=== PATIENT | male | born 1965 | race African-American/Black ===

== ENCOUNTER 2016-07-06 01:40 | Inpatient (IN) ==
[2016-07-06 02:03] LABS: MANUAL DIFF NEEDED? NO
[2016-07-06] MEDS ORDERED: LABETALOL IV ONE (02:07)
[2016-07-06 02:30] LABS: BASO% 0.3 % (0.0-0.8); EOS# 0.08 X1000 (0.0-0.7); EOS% 1.2 % (0.0-10.0); HEMATOCRIT 44.8 % (42.0-52.0); HEMOGLOBIN 15.1 g/dL (14.0-18.0); IMM GRAN# 0.02 X1000 (0.0-0.04); IMM GRAN% 0.3 % (0.0-0.5); LYMPH# 2.98 X1000 (1.2-3.4); LYMPH% 45.8 % (20.5-51.1); MCH 30.2 PG (27-31); MCHC 33.7 g/dL (33-37); MCV 89.6 FL (81-99); MONO# 0.75 X1000 (0.11-0.59); MONO% 11.5 % (1.7-9.3); MPV 11.1 FL (7.4-10.4); NEUT% 40.9 % (42.2-75.2); PLT 181 X1000 (130-400)
[2016-07-06] MEDS ORDERED: LABETALOL ONE (02:31)
--- NOTE | 2016-07-06 02:40 | EKG Report ---
Test Performed on : 07/06/2016 01:50:21 AM Test Reason : weakness on one side Blood Pressure : / mmHG Vent. Rate : 081 BPM Atrial Rate : 081 BPM P-R Int : 178 ms QRS Dur : 082 ms QT Int : 406 ms P-R-T Axes : 039 034 017 degrees QTc Int : 471 ms Normal sinus rhythm. Voltage criteria for left ventricular hypertrophy Nonspecific T wave abnormality Abnormal ECG No previous ECGs available Unconfirmed Result
[2016-07-06 03:04] LABS: AGAP 15; ALKALINE PHOSPHATASE 61 U/L (32-122); BUN 19 mg/dL (8-22); CHLORIDE 104 mmol/L (98-107); COSMO 282; GOT 35 U/L (10-34); GPT 41 U/L (10-44); POTASSIUM 3.5 mmol/L (3.5-5.1); SODIUM 140 mmol/L (136-145); TCO2 21 mmol/L (25-35); TOTAL PROTEIN 7.4 g/dL (6.3-8.3)
[2016-07-06 03:48] LABS: PROTIME 10.7 Seconds (12.1-15.5); PTT PL 29.2 Seconds (22.6-43.9)
[2016-07-06 03:49] LABS: INR 1.02 (0.86-1.15)
[2016-07-06] MEDS ORDERED: CATAPRES PO ONE (03:49)
--- NOTE | 2016-07-06 03:56 | PROVIDER DOCUMENTATION ---
This chart was entered by Zofia Eden Scribe, acting as scribe for Robson Anguiano MD. HPI-Neurological Disorder - General Chief Complaint: Weakness Stated Complaint: STROKE SX Time Seen by Provider: 07/06/16 01:50 Source: patient Allergies/Adverse Reactions: Patient Allergies Allergy/AdvReac Type Severity Reaction Status Date / Time No Known Allergies Allergy Verified 07/06/16 02:07 - History of Present Illness-Neuro Nature of Presenting Problem: PT IS A 51YOM PRESENTING TO THE ED C/O RIGHT SIDE WEAKNESS. PT STATES WEAKNESS BEGAN ABOUT 24HOURS AGO AND ONLY IN HIS RIGHT LEG. PT STATES HIS LEG IS SO WEAK HE IS UNABLE TO STAND ON HIS OWN. PT HAS A HISTORY OF UNCONTROLLED HTN DUE TO NON-COMPLIANT WITH HIS MEDICATIONS, HE DRINKS A PINT OF WHISKEY A DAY. NO RICARDO,N/V /D, SOB OR CP NOTED AT THIS TIME Severity: reports: mild Onset/Duration: reports: 24 hours ago Timing: reports: still present Context: reports: paresthesia Character of Altered Mental Status: reports: N/A Any recent trauma/injury?: reports: none Character of Deficits: reports: new weakness New weakness or altered sensation location:: reports: RLE Cognitive Baseline: alert, oriented x3 Gait Baseline: walks without assistance Associated Symptoms: reports: decreased ability to walk or stand, numbness in legs/feet, paresthesia, trouble walking. denies: loss of consciousness, nausea , slurred speech Similar Symptoms Previously?: No Recently seen or treated by another doctor?: No Review of Systems - Adult - REVIEW OF SYSTEMS - ADULT Constitutional: reports: no symptoms reported Eyes: reports: no symptoms reported Ears, Nose, Mouth & Throat: reports: no symptoms reported Cardiovascular: reports: no symptoms reported Respiratory: reports: no symptoms reported Gastrointestinal: reports: no symptoms reported Genitourinary: reports: no symptoms reported Musculoskeletal: reports: no symptoms reported Integumentary: reports: no symptoms reported Neurological: reports: see HPI, paresthesia. denies: slurred speech, tremors Psychiatric: reports: see HPI, alcohol/drug dependence. denies: insomnia, suicidal thoughts Endocrine: reports: no symptoms reported Hematologic/Lymphatic: reports: no symptoms reported Allergic/Immunologic: reports: no symptoms reported All Other Systems: Reviewed and Negative Past History - Adult - PAST MEDICAL HISTORY-ADULT Review of Records: reports: Old Records Reviewed, Nursing Assessment Review, Medications Reviewed, Social history reviewed & non-contributory. Major Childhood Illnesses: reports: denies history Cardiovascular: reports: denies history Respiratory: reports: denies history Gastrointestinal: reports: denies history Obstetrical/Gynecological: reports: denies history Genitourinary: reports: denies history Musculoskeletal: reports: denies history Neurological: reports: denies history Endocrine/Immune: reports: denies history Other Conditions: reports: denies history - IMMUNIZATION STATUS Childhood Immunizations: See Nurse Assessment Flu Vaccine: See Nurse Assessment - FAMILY HISTORY Family History: reviewed, not pertinent - SOCIAL HISTORY Smoking: denies, non-smoker Substance Use: none/never, alcohol Alcohol Use Frequency: every day Number of drinks per typical drinking period:: 16-20 drinks Living Situation: family Physical Exam- Neurological - Physical Exam-Neuro Initial Vital Signs Reviewed: Yes General Appearance: appears well, alert, mild distress. negative: no apparent distress Eye Exam: bilateral eye: normal inspection, PERRL, EOMI HENMT: normocephalic/atraumatic, moist mucous membranes, normal ENT inspection, TMs normal, pharynx normal Head Injury: no evidence of injury Neck: non-tender, full range of motion, supple, normal inspection Respiratory: chest non-tender, lungs clear, normal breath sounds, no pleuratic chest pain, no respiratory distress, no accessory muscle use Cardiovascular: normal peripheral pulses, regular rate, rhythm, no edema, no gallop, no JVD, no murmur Abdominal Exam: normal bowel sounds, non tender, soft, no organomegaly, no pulsatile mass Lymphatic: no adenopathy Extremity: normal range of motion, non-tender, normal gait, normal inspection, no pedal edema, no calf tenderness, normal capillary refill, pelvis stable roster clerk Exam: normal hearing, normal speech, PERRL. negative: facial asymmetry, facial droop Coordination/Gait: normal finger to nose. negative: normal gait Motor/Sensory: no motor deficit, no sensory deficit, no pronator drift Neurologic: roster clerk II-XII nml as tested, grossly normal, no motor/sensory deficits Integumentary: normal color, normal turgor, warm/dry Psych/Mental Status: normal mood/affect, normal thought content, normal thought process, oriented x 3 - Glascow Coma Scale Best Eye Response: (4) open spontaneously Best Verbal Response: (5) oriented Best Motor Response: (6) obeys commands Progress - PLAN OF CARE/RESULTS Progress/Plan/Lab Results: Vital Signs - 8 hr 07/06/16 02:00 07/06/16 02:26 07/06/16 02:30 Temperature 98.2 F Pulse Rate 80 82 86 Respiratory Rate 32 H 16 24 Blood Pressure 206/127 201/136 179/123 O2 Sat by Pulse Oximetry 90 L 90 L 92 L 07/06/16 02:41 07/06/16 02:46 07/06/16 03:01 Temperature 98.5 F Pulse Rate 82 79 76 Respiratory Rate 18 17 15 Blood Pressure 200/131 179/120 186/125 O2 Sat by Pulse Oximetry 100 81 L 07/06/16 03:08 07/06/16 03:36 Temperature 98.0 F Pulse Rate 84 Respiratory Rate 18 Blood Pressure 178/115 O2 Sat by Pulse Oximetry 94 L 95 Laboratory Results - last 24 hr 07/06/16 07/06/16 07/06/16 01:57 01:57 01:57 WBC 6.51 RBC 5.00 Hgb 15.1 Hct 44.8 MCV 89.6 MCH 30.2 MCHC 33.7 RDW Std Deviation 13.2 Plt Count 181 MPV 11.1 H Immature Gran % (Auto) 0.3 Neut % (Auto) 40.9 L Lymph % (Auto) 45.8 [place] % (Auto) 11.5 H Eos % (Auto) 1.2 Baso % (Auto) 0.3 Immature Gran # (Auto) 0.02 Neut # (Auto) 2.66 Lymph # (Auto) 2.98 [place] # (Auto) 0.75 H Eos # (Auto) 0.08 Baso # (Auto) 0.02 PT INR APTT (Factor Assay) Sodium 140 Potassium 3.5 Chloride 104 Carbon Dioxide 21 L Anion Gap 15 BUN 19 Creatinine 0.8 Estimated GFR/1.73 m2 > 60 BUN/Creatinine Ratio 24 Glucose 109 H Calculated Osmolality 282 Calcium 9.0 Total Bilirubin 0.20 AST 35 H ALT 41 Alkaline Phosphatase 61 Troponin T < 0.010 Total Protein 7.4 Albumin 4.0 Globulin 3.0 Albumin/Globulin Ratio 1.0 07/06/16 01:57 WBC RBC Hgb Hct MCV MCH MCHC RDW Std Deviation Plt Count MPV Immature Gran % (Auto) Neut % (Auto) Lymph % (Auto) [place] % (Auto) Eos % (Auto) Baso % (Auto) Immature Gran # (Auto) Neut # (Auto) Lymph # (Auto) [place] # (Auto) Eos # (Auto) Baso # (Auto) PT 10.7 L INR 1.02 APTT (Factor Assay) 29.2 Sodium Potassium Chloride Carbon Dioxide Anion Gap BUN Creatinine Estimated GFR/1.73 m2 BUN/Creatinine Ratio Glucose Calculated Osmolality Calcium Total Bilirubin AST ALT Alkaline Phosphatase Troponin T Total Protein Albumin Globulin Albumin/Globulin Ratio Orders Category Date Time Status Cardiac Monitoring DIRECTED Care 07/06/16 01:51 Active Oxygen Therapy- ED Nursing DIRECTED Care 07/06/16 01:51 Active Saline Loc NOW Care 07/06/16 01:51 Active HEAD W/O CONTRAST [CT] Stat Exams 07/06/16 01:49 Taken CBC WITH ELECTRONIC DIFF [HEME] Stat Lab 07/06/16 01:57 Completed COMPREHENSIVE METABOLIC PANEL [CHEM] Stat Lab 07/06/16 01:57 Completed PROTIME WITH INR PL [COAG] Stat Lab 07/06/16 01:[address] [COAG] Stat Lab 07/06/16 01:57 Completed TROPONIN T Stat Lab 07/06/16 01:57 Completed URINE DRUG SCREEN PL Stat Lab 07/06/16 01:59 Ordered Clonidine [Catapres] Med 07/06/16 03:49 Discontinued 0.2 mg PO NOW ONE Labetalol Med 07/06/16 02:31 Discontinued 20 mg .ROUTE .STK-MED ONE Labetalol Med 07/06/16 02:07 Discontinued 20 mg IV NOW ONE EKG [EKG] Stat Ther 07/06/16 01:51 Draft Result Diagrams: 07/06/16 01:57 07/06/16 01:57 Departure - Departure Time of Disposition Decision: 03:50 DIAGNOSIS: Right leg weakness, Uncontrolled hypertension Disposition: ADMITTED INPATIENT 09 Certified Medical Emergency: Emergent Condition: Stable Referrals and Follow-Ups: None,PCP [Primary Care Provider] - - Critical Care Note This patient required my direct personal management.: Yes This chart was documented by the indicated scribe, (Zofia Eden Scribe) and accurately reflects the services I performed and decisions made by me, Robson Anguiano MD, as attested by the provider's signature.
[2016-07-06 04:24] LABS: UR AMPHETAMINES QUAL NONE DETECTED (NONE DETECT); UR BARBITUATES QUAL NONE DETECTED (NONE DETECT); UR BENZODIAZEPIN QUAL NONE DETECTED (NONE DETECT); UR CANNABINOIDS QUAL NONE DETECTED (NONE DETECT); UR COCAINE QUAL NONE DETECTED (NONE DETECT); UR MDMA QUAL NONE DETECTED (NONE DETECT); UR METHADONE QUAL NONE DETECTED (NONE DETECT); UR METHAMPHETAMINE QUAL NONE DETECTED (NONE DETECT); UR OPIATES QUAL NONE DETECTED (NONE DETECT); UR OXYCODONE QUAL NONE DETECTED (NONE DETECT); UR PCP QUAL NONE DETECTED (NONE DETECT); UR TCA QUAL NONE DETECTED (NONE DETECT)
[2016-07-06] MEDS: CATAPRES PO PRN ×2 (06:57→11:39)
--- NOTE | 2016-07-06 09:27 | Diag Imaging Result Document ---
PROCEDURE NAME: HEAD W/O CONTRAST - 07/06/2016 CT HEAD WITHOUT CONTRAST: A dose-reduction protocol was used. COMPARISON: No comparison exam. FINDINGS: There is no evidence of intracranial hemorrhage, mass effect, midline shift, or hydrocephalus. There are mild chronic appearing microvascular ischemic changes. There is no indication of recent infarcts, although acute infarcts may not be immediately visible. IMPRESSION: Mild chronic appearing microvascular ischemic changes. No visible acute process. No hemorrhage or mass effect. A [facility] physician provided preliminary results at 2:33 a.m. on 07/06/2016.
[2016-07-06] MEDS ORDERED: LIBRIUM PO SCH (11:00)
[2016-07-06] MEDS: POTASSIUM CHLORIDE 20 MEQ, MAGNESIUM SULFATE 2 GM, THIAMINE 100 MG, FOLIC ACID 1 MG, M.... IV SCH ×6 (11:39)
[2016-07-06] MEDS: ASPIRIN PO SCH (11:39)
--- NOTE | 2016-07-06 12:31 | HISTORY AND PHYSICAL ---
PRIMARY CARE PHYSICIAN: None. CHIEF COMPLAINT: Right-sided weakness for 24 hours prior to arrival. HISTORY OF PRESENTING ILLNESS: This is a 51-year-old male, who presents to [facility] ER with complaints of right-sided weakness that began approximately 24 hours prior to arrival stating that he cannot stand on his right leg now and cannot walk. He has a history of hypertension, but has been off of his medications for greater than a year for no known given reason. He just said he stopped taking it. His blood pressure on arrival was 211/131. Head CT showed mild chronic appearing microvascular ischemic changes but no visible acute process and no hemorrhage or mass effect. So, he was admitted to the medical unit at [place] for further evaluation and treatment. PAST MEDICAL HISTORY: Uncontrolled hypertension and medical noncompliance. PAST SURGICAL HISTORY: None. FAMILY HISTORY: Noncontributory. SOCIAL HISTORY: He currently lives with family. He denies any tobacco use. States today, he drinks a half a pint of whiskey a day. The ER records stated a pint of whiskey , so it is probably live somewhere in between the 2 and denied any illicit drug use. ALLERGIES: He has no known drug allergies. HOME MEDICATIONS: He does not take any medicines on a routine basis. LABORATORY DATA: Showed a white blood cell count of 6.51, hemoglobin of 15.1, hematocrit 44.8, platelets 181,000. PT of 10.7, INR 1.02. Sodium of 140. Potassium 3.5, chloride 104, CO2 21, BUN of 19. Creatinine 0.8, glucose 109, troponin less than 0.010. Serum alcohol level showed none detected. Head CT showed a mild chronic appearing microvascular ischemic changes. No visible acute process. No hemorrhage or mass effect. EKG showed normal sinus rhythm at 81. REVIEW OF SYSTEMS: He denied any fever, chills, blurred vision, dizziness, chest pain, coughing, shortness of breath. Denied any abdominal pain, constipation, diarrhea, burning or hurting with urination. His only complaint is his right-sided weakness primarily in his right leg. PHYSICAL EXAMINATION: VITAL SIGNS: On arrival, he had a temperature of 98.2 degrees, a pulse of 79, respirations 20, blood pressure was 211/131, currently his blood pressure is 152/99, it is noted in the ER record that he received 20 mg IV x1 of labetalol and clonidine 0.2 mg x1. GENERAL: This is a 51-year-old male, who is lying in the bed, and answers questions appropriately. HEENT: Normocephalic and atraumatic. Pupils are equal, round, reactive to light. The extraocular movements are intact. Oropharynx and nares are clear. NECK: Supple. LUNGS: Clear to auscultation bilaterally with equal lung expansion and chest wall movement. HEART: Regular rate and rhythm. No murmurs, rubs, or gallops. ABDOMEN: Soft, nontender, nondistended. Bowel sounds are present in all 4 quadrants. EXTREMITIES: No clubbing, cyanosis, or edema. NEUROLOGICAL: The cranial nerves 2-12 are grossly intact but it is noted that his right lower extremity is weaker than his left but he is able to move it. That is the only deficit that was noted at this time. ASSESSMENT: 1. Transient ischemic attack versus cerebrovascular accident. 2. Uncontrolled hypertension. 3. Ethanol abuse. 4. Medical noncompliance. PLAN: He was admitted to the medical unit at [place]. We will place him on telemetry. He does not have any difficulty swallowing at this time so, he is on a healthy heart diet. A banana bag of fluids at 100 mL an hour 1 bag daily. We will give him hydralazine 10 mg IV q.6h p.r.n. for systolic greater than 200, diastolic greater than 100. We are going to allow for some permissive hypertension at this time. We will place him on some Ativan 1 mg IV q.4 p.r.n. and some Librium taper for his ETOH use. We will check an MRI of his brain on Friday. We will go ahead and get physical therapy consulted and recheck labs in the a.m. We will give Lovenox 40 mg subcutaneous daily for DVT prophylaxis. Place him on aspirin 325 mg p.o. daily. Dictated by CARTER Causey for Dalton Sapp MD cc: CARTER Causey MD likely CVA, will allow permissive HTN and follow,pt had hx CVA with left sided weakness on left side previously [facility]
[2016-07-06 15:17] LABS: URINE SOURCE CLEAN CATCH
[2016-07-06] MEDS ORDERED: ZOFRAN IV PRN (15:18)
[2016-07-06 15:19] LABS: CLARITY CLEAR (CLEAR); COLOR YELLOW
[2016-07-06 15:20] LABS: BILIRUBIN URINE NEGATIVE (NEGATIVE); BLOOD URINE 1+ (NEGATIVE); GLUCOSE URINE NEGATIVE (NEGATIVE); LEUKOCYTES URINE TRACE (NEGATIVE); NITRITE URINE NEGATIVE (NEGATIVE); PH URINE 6.5; PROTEIN URINE TRACE mg/dL (NEGATIVE); UROBILINOGEN URINE NORMAL
[2016-07-06 15:21] LABS: URINE CRYSTAL URIC ACID PRESENT /HPF
[2016-07-06 15:22] LABS: URINE CAST NONE SEEN /LPF; URINE CULTURE PL NEEDED? YES; URINE EPITHELIAL CELLS <10 /HPF (<10); URINE WBC <10 /HPF (<10)
[2016-07-06] MEDS: LIBRIUM PO SCH (16:51)
[2016-07-06] MEDS: LOVENOX SUBQ SCH (16:52)
[2016-07-06] MEDS: ATIVAN IV PRN (22:02)
[2016-07-07 07:14] LABS: HEMATOCRIT 42.6 % (42.0-52.0); HEMOGLOBIN 14.3 g/dL (14.0-18.0); MCH 30.3 PG (27-31); MCHC 33.6 g/dL (33-37); MCV 90.3 FL (81-99); MPV 10.9 FL (7.4-10.4); RBC 4.72 XMIL (4.7-6.1)
[2016-07-07 07:44] LABS: AGAP 11; ALBUMIN 3.7 g/dL (3.5-5.0); ALKALINE PHOSPHATASE 54 U/L (32-122); BUN 13 mg/dL (8-22); CALCIUM 8.8 mg/dL (8.8-10.2); CHLORIDE 101 mmol/L (98-107); COSMO 267; GOT 31 U/L (10-34); GPT 36 U/L (10-44); HDL 52 mg/dL (35-55); LDL 127 mg/dL; SODIUM 133 mmol/L (136-145); TCO2 21 mmol/L (25-35); TOTAL PROTEIN 6.5 g/dL (6.3-8.3); TRIGLYCERIDES 160 mg/dL (39-160); VLDL 32 mg/dL
[2016-07-07] MEDS: ASPIRIN PO SCH (08:24)
[2016-07-07] MEDS: LIBRIUM PO SCH ×2 (08:24→13:07)
[2016-07-07] MEDS: POTASSIUM CHLORIDE 20 MEQ, MAGNESIUM SULFATE 2 GM, THIAMINE 100 MG, FOLIC ACID 1 MG, M.... IV SCH ×18 (13:07→15:13)
--- NOTE | 2016-07-07 13:26 | Diag Imaging Result Document ---
PROCEDURE NAME: HEAD W/O CONTRAST - 07/07/2016 CT BRAIN WITHOUT CONTRAST: FINDINGS: Multiple images attempted in an attempt to have some without motion. However, there is motion on most of the images. No parenchymal hemorrhage. No epidural or subdural hematoma. No subarachnoid hemorrhage. No hydrocephalus. No mass identified on this noncontrasted exam. No sinus opacification although there is a small air-fluid level in the left maxillary sinus with a small amount of mucous in the right sphenoid sinus. IMPRESSION: 1. No hemorrhage. 2. Mild sinusitis. A preliminary report was given at 12:50 PM.
[2016-07-07] MEDS: LOVENOX SUBQ SCH (15:19)
[2016-07-07] MEDS: NORVASC PO SCH (15:19)
[2016-07-07] MEDS: ATIVAN IV PRN ×2 (15:54→20:39)
[2016-07-07] MEDS: TYLENOL PO PRN (15:54)
--- NOTE | 2016-07-07 16:24 | PROGRESS NOTE ---
DATE: 07/07/2016 SUBJECTIVE: Patient is very sleepy. OBJECTIVE: Vital signs: Blood pressure 176/116, heart rate 73, respiratory rate 20, temperature 97.5 degrees, 99% on 2 L. Cardiovascular: Regular rate and rhythm. Pulmonary: Bilateral breath sounds. Clear to auscultation. GI: Soft, nontender, nondistended. Bowel sounds are positive. ASSESSMENT AND PLAN: 1. Transient ischemic attack versus cerebrovascular accident. Most concerning for an acute ischemic stroke. Repeat head CT has been negative. Will go ahead and pursue an MRI tomorrow. Continue aspirin. Would recommend starting Lipitor if he has truly had an event. His LDL of 127. Echo and carotid are still waiting. 2. Malignant hypertension. At this point, were not entirely sure if he has had an event. I do not want to be too aggressive in his blood pressure control but I will go ahead and initiate Norvasc and follow clinically. DISPOSITION: Pending his workup tomorrow. cc: Dalton Sapp MD
[2016-07-08] MEDS: ATIVAN IV PRN ×2 (01:29→09:38)
[2016-07-08] MEDS: APRESOLINE IV PRN ×3 (01:29→16:46)
[2016-07-08] MEDS ORDERED: HALDOL IV PRN (04:23)
[2016-07-08] MEDS: LIBRIUM PO SCH ×3 (05:12→21:18)
[2016-07-08 06:43] LABS: HEMATOCRIT 47.9 % (42.0-52.0); HEMOGLOBIN 16.3 g/dL (14.0-18.0); MCH 30.1 PG (27-31); MCV 88.5 FL (81-99); MPV 10.7 FL (7.4-10.4); RBC 5.41 XMIL (4.7-6.1)
[2016-07-08 07:36] LABS: AGAP 14; BUN 10 mg/dL (8-22); CALCIUM 9.4 mg/dL (8.8-10.2); CHLORIDE 101 mmol/L (98-107); COSMO 272; POTASSIUM 3.6 mmol/L (3.5-5.1); SODIUM 136 mmol/L (136-145); TCO2 21 mmol/L (25-35)
[2016-07-08] MEDS: NORVASC PO SCH (09:42)
[2016-07-08] MEDS: ASPIRIN PO SCH (09:42)
[2016-07-08] MEDS ORDERED: ATIVAN IV ONE (09:55)
[2016-07-08] MEDS ORDERED: LIBRIUM PO SCH (10:00)
[2016-07-08] MEDS ORDERED: STERILE WATER INJ. INJ ONE (10:21)
[2016-07-08] MEDS ORDERED: GEODON IM ONE (10:21)
[2016-07-08] MEDS ORDERED: POTASSIUM CHLORIDE 20 MEQ, MAGNESIUM SULFATE 2 GM, THIAMINE 100 MG, FOLIC ACID 1 MG, M.... IV SCH ×6 (10:40)
[2016-07-08] MEDS ORDERED: LIBRIUM PO ONE (11:45)
[2016-07-08] MEDS: POTASSIUM CHLORIDE 20 MEQ, MAGNESIUM SULFATE 2 GM, THIAMINE 100 MG, FOLIC ACID 1 MG, M.... IV SCH ×6 (13:21)
--- NOTE | 2016-07-08 14:56 | Diag Imaging Result Document ---
PROCEDURE NAME: MRI BRAIN W/O CONTRAST - 07/08/2016 MRI BRAIN WITHOUT: TECHNIQUE: Axial, sagittal, and coronal images were obtained in multiple sequences. FINDINGS: There is a large amount of motion on the images. There is evidence of a recent left parietal infarct measuring approximately 1.5 x 6.0 cm in length. This is just above the left lateral ventricle along the midline. The patient also has at least mild chronic microvascular ischemic changes. No hydrocephalus. No epidural or subdural fluid collection. No midline shift. IMPRESSION: Recent left parietal infarct.
[2016-07-08] MEDS: LOVENOX SUBQ SCH (15:37)
--- NOTE | 2016-07-08 16:25 | PROGRESS NOTE ---
DATE: 07/08/2016 SUBJECTIVE: The patient is minimally responsive because he had to be chemically sedated because he got very confused. This started around 3 o'clock last night. OBJECTIVE: Vital Signs: Blood pressure 175/112, heart rate 93, respiratory rate 18, temperature 98.8 degrees. Cardiovascular: Regular rate and rhythm. Pulmonary: Bilateral breath sounds, clear to auscultation. Gastrointestinal: Soft, nontender, nondistended. Bowel sounds are positive. Extremities: No clubbing or cyanosis. Lymphatic examination: No peripheral edema. Neurological Examination: Nonfocal but limited because of sedation. LABORATORY DATA: CBC and basic were unremarkable. PROBLEM LIST: 1. Acute ischemic stroke despite 2 negative head [address]s. It looks like he had a left parietal stroke which explains his right-sided weakness. It may explain some of his confusion although it is hard to piece out if it was alcohol withdrawal. His girlfriend states he does not drink that much but he told me he drank at least half a pint a day. We have had to give him medications to kind of sedate him because he has just been not very cooperative, in more of a delirium pattern. In any case we will continue aspirin, statin, permissive hypertension. He will need good control. We had initiated Norvasc previously. We will likely continue that as an outpatient. 2. Encephalopathy. Continue to monitor. I am going to titrate down on his Librium and use medications as tolerated for agitation control. 3. History of alcohol abuse. Aware. We will continue to follow closely. DISPOSITION: Pending improvement in his mental status. Additionally, his carotid and echo are still pending at this time for final interpretation. cc: Dalton Sapp MD
[2016-07-08] MEDS: LIPITOR PO SCH (21:18)
[2016-07-09] MEDS: LIBRIUM PO SCH ×3 (02:53→18:57)
[2016-07-09 06:46] LABS: HEMATOCRIT 48.5 % (42.0-52.0); HEMOGLOBIN 16.4 g/dL (14.0-18.0); MCHC 33.8 g/dL (33-37); MCV 88.7 FL (81-99); RBC 5.47 XMIL (4.7-6.1)
--- NOTE | 2016-07-09 07:21 | Extremity Venous Study ---
PROCEDURE NAME: Carotid Ultrasound - 07/08/2016 CAROTID DOPPLER ULTRASOUND FINDINGS: Difficult exam due to the patient's confusion and inability to hold still. Right: There is normal flow in the right common carotid artery. No stenosis. No plaque. The peak systolic velocity in the internal carotid artery is 54 cm/sec. No stenosis. Left: There is normal flow in the left common carotid artery. No stenosis. No plaque. Normal flow in the internal carotid artery. The peak systolic velocity in the left internal carotid artery is 58 cm/sec. No stenosis. There is antegrade flow in both vertebral arteries. IMPRESSION: No stenosis without either common carotid artery or within either internal carotid artery.
[2016-07-09 07:37] LABS: AGAP 13; ALBUMIN 4.5 g/dL (3.5-5.0); ALKALINE PHOSPHATASE 72 U/L (32-122); BUN 13 mg/dL (8-22); CALCIUM 9.9 mg/dL (8.8-10.2); CHLORIDE 102 mmol/L (98-107); COSMO 273; GOT 43 U/L (10-34); GPT 59 U/L (10-44); SODIUM 136 mmol/L (136-145); TCO2 20 mmol/L (25-35); TOTAL PROTEIN 7.7 g/dL (6.3-8.3)
--- NOTE | 2016-07-09 08:15 | Diag Imaging Result Document ---
PROCEDURE NAME: CHEST-1 VIEW - 07/08/2016 CHEST AP SINGLE VIEW: FINDINGS: Poor inspiratory effort. The heart is not enlarged. The vessels are not distended. No pneumonia. No pleural effusions identified. IMPRESSION: Negative chest.
[2016-07-09] MEDS: ASPIRIN PO SCH (09:00)
[2016-07-09] MEDS: TYLENOL PO PRN (10:52)
--- NOTE | 2016-07-09 12:11 | PROGRESS NOTE ---
DATE: 07/09/2016 SUBJECTIVE: The patient has been sedated chemically this morning at around 5 a.m. He is starting to become responsive. He is slow to answer, but he does answer questions with 1 or 2 words. He does slowly follow commands. OBJECTIVE: Vital Signs: Blood pressure is 140/85 with a heart rate of 90, respirations are 18, temperature is 98.7 degrees oral, with room air saturations of 96% to 98%. Cardiovascular: Regular rate and rhythm. S1 and S2 appreciated. Pulmonary: Breath sounds are clear with no increased work of breathing noted. Gastrointestinal: Abdomen is soft, nontender, and nondistended, with bowel sounds in all 4 quadrants. Extremities: No clubbing, cyanosis, or edema. Pulses are palpable x4. Neurologic: This is limited due to sedation. LABORATORIES: WBC is 6.65, with hemoglobin 16.4, hematocrit 48.5, and platelets of 206,000. Sodium 136, potassium 4, BUN 13, creatinine 0.9, with a glucose of 120. ASSESSMENT AND PLAN: 1. Acute ischemic stroke. Despite 2 negative head [address]s, MRI of the brain was performed and did reveal a recent left parietal infarct. He continues with some intermittent confusion. He was sedated this morning, so neurologic checks are unable to be performed at present. We will reassess later in the day. We will continue with the aspirin daily as well as Lipitor. 2. Encephalopathy. We will continue to monitor. We are titrating down his medications. 3. History of alcohol abuse. The patient did admit to drinking at least half a pint a day. On questioning the family this morning, they did state that he does drink this and maybe more daily. We are not sure how much of his confusion is stroke or is alcohol withdrawal, so we are going to start titrating down on his medications, perform neurologic checks, and follow. Physical Therapy attempted to evaluate the patient, although they were unable due to sedation. Myself, Dr. Goode, and Physical Therapy have met with the family today. They are aware that we are starting to decrease the sedation as long as it is safe for the patient, and that Physical Therapy will re-evaluate in the morning. Dictated by CARTER Huggins for Donovan Goode MD cc: CARTER Huggins, MD
[2016-07-09] MEDS: POTASSIUM CHLORIDE 20 MEQ, MAGNESIUM SULFATE 2 GM, THIAMINE 100 MG, FOLIC ACID 1 MG, M.... IV SCH ×6 (12:22)
[2016-07-09] MEDS: LOVENOX SUBQ SCH (15:56)
[2016-07-09] MEDS: LIPITOR PO SCH (21:47)
[2016-07-10] MEDS: LIBRIUM PO SCH ×2 (03:08→14:24)
--- NOTE | 2016-07-10 08:19 | PROGRESS NOTE ---
DATE: 07/10/2016 SUBJECTIVE: Patient is much more awake and alert this morning. He is starting to feel better. He is still frequently moving about in the bed. His notes that he is much more awake and alert and oriented. PHYSICAL: Temperature 98, pulse 52, respiratory rate 18, BP 163/83 to 150/112, saturation 98% on room air.General: Patient is awake, alert. He is currently in no respiratory distress. He is pleasant to talk with. He does answer some questions appropriately but does not answer all questions. HEENT: Normocephalic. Neck: Supple. CV: Regular rate. Chest: Relatively clear. Abdomen: Soft. Extremities: Moves all extremities. Neurologic: No changes. LABS: Reviewed. CBC normal. CMP essentially normal. Glucose 120, AST and ALT mildly elevated. ASSESSMENT: 1. Acute ischemic stroke. 2. Chronic alcoholism. Again discussed with the girlfriend, as well as the family alcoholism and its course. We will continue to wean down his Librium. He tolerated weaning down yesterday. We will again attempt to decrease to 25 twice a day today. Again discussed with the family the perils of alcohol withdrawal and the need to prevent DTs. Discussed with them that should he start picking, jerking, being confused and agitated that we would need to give him a p.r.n. dose of medication. They understand. His blood pressure is elevated today. We will start on Prinivil 10 mg as well as Norvasc 5 mg and continue to follow. We will get physical therapy involved. Further orders as needed. cc: Donovan Goode MD
[2016-07-10] MEDS: ASPIRIN PO SCH (08:46)
[2016-07-10] MEDS: NORVASC PO SCH (08:46)
[2016-07-10] MEDS: PRINIVIL PO SCH (08:46)
[2016-07-10] MEDS: POTASSIUM CHLORIDE 20 MEQ, MAGNESIUM SULFATE 2 GM, THIAMINE 100 MG, FOLIC ACID 1 MG, M.... IV SCH ×6 (13:15)
[2016-07-10] MEDS: LOVENOX SUBQ SCH (15:17)
[2016-07-10] MEDS: LIPITOR PO SCH (21:04)
[2016-07-11] MEDS: LIBRIUM PO SCH ×2 (01:13→14:27)
[2016-07-11] MEDS: TYLENOL PO PRN ×2 (02:45→16:18)
[2016-07-11] MEDS: PRINIVIL PO SCH ×2 (09:02→20:25)
[2016-07-11] MEDS: ASPIRIN PO SCH (09:02)
[2016-07-11] MEDS: NORVASC PO SCH ×2 (09:07→20:25)
--- NOTE | 2016-07-11 12:25 | PROGRESS NOTE ---
DATE: 07/11/2016 SUBJECTIVE: The patient is more awake and alert this morning. He does feel better. He is still restless in the bed. He has no specific complaints. OBJECTIVE: Vital Signs: Blood pressure is 151/90 with a heart rate of 83. Respirations are 18. Temperature is 97.4 degrees with room air saturations of 98%. Cardiovascular: Regular rate and rhythm. S1 and S2 appreciated. Pulmonary: Breath sounds are clear, with no increased work of breathing noted. Gastrointestinal: Abdomen is soft, nontender, nondistended, with bowel sounds in all 4 quadrants. Extremities: No clubbing, cyanosis, or edema. Calves are nontender. Pulses are palpable x4. Neurologic: He is alert and oriented x3. Speech is clear. He does engage in some conversation. Moves all extremities with 5/5 strength to upper extremities and left lower extremity. Right lower extremity has a 3-4 out of 5. ASSESSMENT: 1. Acute ischemic stroke. He is improving. We will continue with physical therapy. Continue aspirin and Lipitor. 2. Chronic alcoholism. Again, we discussed with the girlfriend as well as son the perils of alcoholism. We reiterated alcohol withdrawal and the need to prevent delirium tremens. tolerating the decreased dose of librium well. 3. Hypertension. We will continue with Prinivil as well as Norvasc, and follow. 4. Disposition: We are waiting on decision on rehabilitation placement. Dictated by CARTER Huggins for Donovan Goode MD cc: CARTER Huggins MD [facility]
[2016-07-11] MEDS: POTASSIUM CHLORIDE 20 MEQ, MAGNESIUM SULFATE 2 GM, THIAMINE 100 MG, FOLIC ACID 1 MG, M.... IV SCH ×6 (14:27)
[2016-07-11] MEDS: LOVENOX SUBQ SCH (15:43)
[2016-07-11] MEDS: LIPITOR PO SCH (20:25)
[2016-07-12] MEDS: LIBRIUM PO SCH ×2 (02:09→14:27)
[2016-07-12] MEDS: TYLENOL PO PRN (03:06)
[2016-07-12] MEDS ORDERED: LOPRESSOR PO SCH (09:00)
[2016-07-12 09:02] VITALS: BP 159/121
[2016-07-12] MEDS: PRINIVIL PO SCH (10:36)
[2016-07-12] MEDS: NORVASC PO SCH (10:36)
[2016-07-12] MEDS: ASPIRIN PO SCH (10:36)
--- NOTE | 2016-07-12 12:53 | DISCHARGE SUMMARY ---
ADMISSION DATE: 07/06/2016 DISCHARGE DATE: 07/12/2016 DISCHARGE DIAGNOSES: 1. Acute ischemic stroke, improving. He will need to continue physical therapy. He has been started on aspirin and Lipitor. 2. Chronic alcoholism. Patient thankfully was weaned down from his Librium without any significant alcohol withdrawal symptoms. He currently is stable and will wean totally off Librium over the next few days. 3. Hypertension. Blood pressure remains elevated. Prinivil and Norvasc both have been increased to Prinivil 20 mg twice a day, Norvasc 5 mg twice a day. Toprol 25 mg twice a day was added today. Certainly may need to add hydralazine as well. CONSULTATIONS: Physical Therapy. PROCEDURES: None. BRIEF HOSPITAL COURSE: Patient is a 51-year-old male who was admitted as noted in the HPI, treated in usual fashion secondary to an acute stroke. His blood pressures remained elevated throughout the hospital stay. He has continued to be improved with increased medications. He was placed on high-dose Librium when he initially was found out to be a chronic alcoholic. His Librium was slowly weaned down. Physical Therapy was consulted. DISPOSITION: Patient will be discharged home. MEDICATIONS: Continue Librium taper, currently on 25 mg once a day. Will taper this off over the next couple of days. Continue Lisinopril 20 mg twice a day, Norvasc 5 mg twice a day, Toprol 25 mg twice a day. Will add hydralazine if needed. PLAN: He will have physical therapy at home. Certainly would prefer rehabilitation, but that does not appear to be available. TIME: Forty-five minutes was spent in discharge planning and instructions, again discussing with Mr. Marinelliolas the perils of alcohol and alcoholism. cc: Donovan Goode MD
[2016-07-12] MEDS ORDERED: MISC. PHARMACY COMMUNICATION SCH (13:00)
[2016-07-12] MEDS: POTASSIUM CHLORIDE 20 MEQ, MAGNESIUM SULFATE 2 GM, THIAMINE 100 MG, FOLIC ACID 1 MG, M.... IV SCH ×6 (14:25)
[2016-07-12] MEDS: LOVENOX SUBQ SCH (15:16)
== END 2016-07-12 16:39 | disposition home health service (06) ==
LOC: P.ED 01:40 → P.MEDSURG 04:50 → SUATTDRO 04:50
PROVIDERS: ATTEND Family Medicine